=== PATIENT | female | born 1930 ===

== ENCOUNTER 2016-07-19 11:06 | Inpatient (IN) | payer MEDICARE, OTHER ==
[~2016-07-19] VITALS: Ht 142.2 cm; Wt 43.2 kg
[2016-07-19] VITALS (9 sets, daily range): BP systolic 127–163; BP diastolic 62–88
[2016-07-19] MEDS ORDERED: SODIUM CHLORIDE 0.9% 1,000 ML IV ONE ×2 (11:45→14:15)
[2016-07-19 12:31] LABS: Basophils # (auto) 0 uL; DEFINITIVE VIEW TRANSMISSION; Eosinophils # (auto) 0 uL; Lymphocytes # (auto) 0.8 uL; Mean Corpuscular Hemoglobin 25.5 pg (28.0-32.0); Mean Platelet Volume 7.9 fL (7.4-10.4); Monocytes # (auto) 0.5 uL
[2016-07-19 12:43] LABS: Partial Thromboplastin Time 27.5 sec (22.64-33.71)
[2016-07-19 12:45] LABS: Basophils % (auto) 0.4 % (0.0-2.0); Eosinophils % (auto) 0.4 % (0.0-7.0); Hematocrit 18.8 % (36.0-46.0); Lymphocytes % (auto) 8.7 % (10.0-50.0); Mean Corpuscular Volume 79.7 fL (80.0-100.0); Monocytes % (auto) 5.1 % (0.0-12.0); Neutrophils % (auto) 85.4 % (37.0-80.0); Platelet Count (auto) 197 10^3/uL (140-450); Red Cell Distribution Width 18.1 % (11.6-16.0); White Blood Cell 9.3 10^3/uL (4.4-10.8)
[2016-07-19 12:46] LABS: INR 1.38 (0.9-1.15); Prothrombin Time 14.9 sec (9.37-12.3)
[2016-07-19 12:59] LABS: Albumin 1.7 g/dL (3.4-5.0); BUN/Creatinine Ratio 43.8; Bilirubin, Total 0.2 mg/dL (0.2-1.0); Magnesium 1.5 mg/dL (1.6-2.6)
[2016-07-19 13:00] LABS: Lactic Acid w/Reflex 2.5 mmol/L (0.4-2.0)
[2016-07-19 13:20] LABS: Calcium 5.8 mg/dL (8.5-10.1); Potassium 2.7 mmol/L (3.5-5.1)
[2016-07-19 13:23] LABS: REFLEX LACTIC ACID YES OR NO YES
[2016-07-19] MEDS ORDERED: POTASSIUM CHL 10% (20 MEQ/15ML) ORAL SOLN PO ONE (13:30)
[2016-07-19] MEDS ORDERED: MAGNESIUM SULFATE 1GM/100ML 100 ML IV ONE (13:30)
[2016-07-19] MEDS ORDERED: CALCIUM GLUC 4.65 MEQ/10ML 4.65 MEQ in SODIUM CHL 0.9% 50 ML IV ONE (13:30)
[2016-07-19 13:33] LABS: Platelet Estimate Adequate
[2016-07-19 13:34] LABS: Anisocytosis Slight; Hypochromia Slight; Microcytosis Slight
[2016-07-19] MEDS ORDERED: SODIUM CHLORIDE 0.9% 1,000 ML IV SCH (13:53)
[2016-07-19] MEDS ORDERED: TEMAZEPAM 15 MG CAP PO PRN (14:00)
[2016-07-19] MEDS ORDERED: MORPHINE SULF INJ 2 MG/ML SYRINGE 1ML IV PRN (14:00)
[2016-07-19] MEDS ORDERED: ONDANSETRON HCL 4 MG/2 ML VIAL IV PRN (14:00)
[2016-07-19] MEDS ORDERED: ALBUTEROL SULF 2.5 MG/0.5ML(0.5%) NEB SOLN NEB PRN (14:00)
[2016-07-19] MEDS ORDERED: ACETAMINOPHEN 500 MG TAB PO PRN (14:00)
[2016-07-19] MEDS ORDERED: LACTULOSE 20Gm/30ML SOLN PO PRN (14:00)
[2016-07-19] MEDS ORDERED: LORazepam 0.5 MG TAB PO PRN (14:00)
[2016-07-19] MEDS ORDERED: NITROGLYCERIN 0.4 MG SL TAB SL PRN (14:00)
[2016-07-19] MEDS: PANTOPRAZOLE 40 MG TAB PO SCH (16:00)
[2016-07-19] MEDS: POTASSIUM CHL 20MEQ/100ML 100 ML IV SCH ×2 (17:50→19:50)
[2016-07-19] MEDS: IPRATROPIUM BROM 0.5 MG/2.5ML INH SOL NEB SCH (18:29)
[2016-07-19] MEDS: ALBUTEROL SULF 2.5 MG/0.5ML(0.5%) NEB SOLN NEB SCH (18:29)
[2016-07-19 18:57] LABS: Hematocrit 36.6 % (36.0-46.0); Hemoglobin 11.8 g/dL (12.2-16.2)
[2016-07-19] MEDS ORDERED: POTASSIUM CHL 20MEQ/100ML 100 ML IV ONE (19:45)
[2016-07-19 19:49] LABS: Urine RBC None Seen /hpf (0 - 4)
[2016-07-19 19:58] LABS: Urine Bilirubin Negative (Negative); Urine Blood Negative /uL (Negative); Urine Color Yellow (Yellow); Urine Glucose Normal (Normal); Urine Ketone Negative (Negative); Urine Mucus MANY (None Seen); Urine Nitrite Negative (Negative); Urine Squamous Epithelial Cell FEW /hpf (<5); Urine Urobilinogen Normal (Negative)
[2016-07-19] MEDS ORDERED: POTASSIUM CHL 20MEQ/100ML 100 ML IV SCH (20:00)
[2016-07-19] MEDS: LEVOFLOXACIN 500MG 100 ML IV SCH (20:52)
[2016-07-19] MEDS: CLINDAMYCIN 600MG IV 50 ML IV SCH (21:56)
[2016-07-19] MEDS: SOD CHL 0.9%/ KCL 40MEQ 1,000 ML IV SCH (22:24)
[2016-07-19] MEDS: SODIUM CHLORIDE 0.9% 1,000 ML IV SCH (22:30)
[2016-07-20] VITALS: BP 144/65
[2016-07-20] MEDS: IPRATROPIUM BROM 0.5 MG/2.5ML INH SOL NEB SCH ×4 (00:14→18:00)
[2016-07-20] MEDS: ALBUTEROL SULF 2.5 MG/0.5ML(0.5%) NEB SOLN NEB SCH ×4 (00:14→18:00)
[2016-07-20] MEDS: CLINDAMYCIN 600MG IV 50 ML IV SCH ×3 (00:20→16:03)
[2016-07-20 00:55] LABS: Hematocrit 45.5 % (36.0-46.0); Hemoglobin 14.3 g/dL (12.2-16.2)
[2016-07-20] MEDS: SOD CHL 0.9%/ KCL 40MEQ 1,000 ML IV SCH (01:15)
[2016-07-20] MEDS: MORPHINE SULF INJ 2 MG/ML SYRINGE 1ML IV PRN ×4 (03:44→17:15)
[2016-07-20 04:00] VITALS: BP 143/67
[2016-07-20] MEDS: SODIUM CHLORIDE 0.9% 1,000 ML IV SCH (05:10)
[2016-07-20] MEDS: HYDROcodone-ACET 5/325MG TAB PO PRN ×2 (05:13→20:08)
[2016-07-20 06:36] LABS: Basophils # (auto) 0 uL; Basophils % (auto) 0.4 % (0.0-2.0); DEFINITIVE VIEW TRANSMISSION; Eosinophils # (auto) 0 uL; Eosinophils % (auto) 0.5 % (0.0-7.0); Hematocrit 41.5 % (36.0-46.0); Hemoglobin 13.3 g/dL (12.2-16.2); Lymphocytes # (auto) 1.2 uL; Lymphocytes % (auto) 13.5 % (10.0-50.0); Mean Corpuscular Hemoglobin 26.1 pg (28.0-32.0); Mean Corpuscular Volume 81.6 fL (80.0-100.0); Mean Platelet Volume 8.7 fL (7.4-10.4); Monocytes # (auto) 0.9 uL; Monocytes % (auto) 10.3 % (0.0-12.0); Neutrophils # (auto) 6.8 uL; Neutrophils % (auto) 75.3 % (37.0-80.0); Platelet Count (auto) 240 10^3/uL (140-450); Red Cell Distribution Width 17.3 % (11.6-16.0)
[2016-07-20 08:00] VITALS: BP 121/75
[2016-07-20] MEDS: PANTOPRAZOLE 40 MG TAB PO SCH (10:00)
[2016-07-20] MEDS: LEVOFLOXACIN 500MG 100 ML IV SCH (10:18)
[2016-07-20 12:05] VITALS: BP 142/73
[2016-07-20 14:32] LABS: Magnesium 1.9 mg/dL (1.6-2.6); Potassium 4.2 mmol/L (3.5-5.1)
[2016-07-20 16:19] VITALS: BP 158/68
[2016-07-20] MEDS: PRO-STAT 64 30ML PO SCH (18:00)
[2016-07-20] MEDS: BOOST PLUS 8 ounce PO SCH (18:19)
[2016-07-20 21:36] VITALS: BP 161/76
[2016-07-20] MEDS ORDERED: SODIUM CHLORIDE 0.9% 1,000 ML IV SCH (22:30)
[2016-07-21] MEDS: CLINDAMYCIN 600MG IV 50 ML IV SCH ×2 (00:40→08:33)
[2016-07-21] MEDS: MORPHINE SULF INJ 2 MG/ML SYRINGE 1ML IV PRN (02:57)
[2016-07-21 05:12] VITALS: BP 146/76
[2016-07-21 05:58] LABS: Hematocrit 44.6 % (36.0-46.0); Hemoglobin 14.4 g/dL (12.2-16.2)
[2016-07-21] MEDS: IPRATROPIUM BROM 0.5 MG/2.5ML INH SOL NEB SCH ×3 (05:58→11:34)
[2016-07-21] MEDS: ALBUTEROL SULF 2.5 MG/0.5ML(0.5%) NEB SOLN NEB SCH ×3 (05:58→11:34)
[2016-07-21 06:10] LABS: BUN/Creatinine Ratio 20.5; Magnesium 2.5 mg/dL (1.6-2.6); Potassium 4.3 mmol/L (3.5-5.1)
[2016-07-21] MEDS: BOOST PLUS 8 ounce PO SCH ×2 (08:33→12:13)
[2016-07-21] MEDS: PRO-STAT 64 30ML PO SCH (08:35)
[2016-07-21 09:00] VITALS: BP 134/69
[2016-07-21] MEDS: LEVOFLOXACIN 500MG 100 ML IV SCH (09:41)
[2016-07-21] MEDS: HYDROcodone-ACET 5/325MG TAB PO PRN (09:42)
[2016-07-21] MEDS: PANTOPRAZOLE 40 MG TAB PO SCH (09:46)
[2016-07-21 11:54] VITALS: BP 139/69
[2016-07-21 13:00] VITALS: BP 134/63
[2016-07-21] MEDS ORDERED: HALOPERIDOL 1 MG TAB PO ONE (14:30)
== END 2016-07-21 15:13 | disposition hospice, home (50) | DRG 811 ==
LOC: ER 11:06 → TELE 11:07 → DOU IN ICU 22:50 → TELE-CENTR 07-20 18:43
PROVIDERS: ADMIT Internal Medicine; ATTEND Internal Medicine
PROC: 30233N1 Transfusion of Nonautologous Red Blood Cells into Peripheral Vein, Percutaneous Approach (ICD-10-PCS; principal; 2016-07-19)
DX: D64.9 Anemia, unspecified (principal); E43 Unspecified severe protein-calorie malnutrition; M48.54XA Collapsed vertebra, not elsewhere classified, thoracic region, initial encounter for fracture; M48.56XA Collapsed vertebra, not elsewhere classified, lumbar region, initial encounter for fracture; E83.42 Hypomagnesemia; E83.51 Hypocalcemia; E87.6 Hypokalemia; F02.80 Dementia in other diseases classified elsewhere, unspecified severity, without behavioral disturbance, psychotic disturbance, mood disturbance, and anxiety; G30.9 Alzheimer's disease, unspecified; I11.9 Hypertensive heart disease without heart failure; I70.0 Atherosclerosis of aorta; J84.10 Pulmonary fibrosis, unspecified; K21.9 Gastro-esophageal reflux disease without esophagitis; R31.9 Hematuria, unspecified; Z66 Do not resuscitate; F41.9 Anxiety disorder, unspecified; C50.912 Malignant neoplasm of unspecified site of left female breast; Z85.3 Personal history of malignant neoplasm of breast; Z68.21 Body mass index [BMI] 21.0-21.9, adult
CPT/HCPCS: 36415; 36430; 51702; 71010; 71250; 74176; 80048; 80053; 81001; 83605; 83735; 84132; 84484; 85014; 85018; 85025; 85045; 85610; 85730; 86850; 86900; 86901; 86920; 87040; 87081; 87086; 93005; 94640; 96361; 96365; 99291; J1956; J3480; J3490